=== PATIENT | male | born 1970 | race Caucasian/White ===

== ENCOUNTER 2025-01-10 15:09 | Emergency (ER) | payer SELFPAY ==
[~2025-01-10] VITALS: Ht 177.8 cm; Wt 80.0 kg
[2025-01-10] MEDS ORDERED: LIDOCAINE 2% VISCOUS 6 ML SYR TOP ONE (15:30)
[2025-01-10 15:55] VITALS: BP 170/119
--- OUTSIDE RECORDS SUMMARY | 2025-01-10 16:22 | XMS ---
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 Mary has no Care Guidelines for this patient. [place] VISIT COUNT (12 MO.) [address] [facility] 1 [facility]. TOTAL 5 NOTE: Visits indicate total known visits. [place]/[facility] [place] (12 MO.) 01/10/2025 15:[address] [facility] TYPE: Emergency COMPLAINT: - CATH ISSUES 01/03/2025 15:13 [facility] TYPE: Emergency DIAGNOSES: - Other retention of urine - Hematuria - medical concern - Urinary Retention 01/03/2025 08:33 [facility] TYPE: Emergency DIAGNOSES: - Encounter for fitting and adjustment of urinary device - Catheter Problem (Change) - catheter removal 12/30/2024 07:02 [facility] TYPE: Emergency COMPLAINT: - Retention of urine, unspecified DIAGNOSES: 1. Retention of urine, unspecified 2. Other stimulant abuse, uncomplicated 3. Elevated blood-pressure reading, without diagnosis of hypertension 4. Other longterm (current) drug therapy 12/28/2024 06:08 [facility] TYPE: Emergency DIAGNOSES: 1. Other retention of urine INPATIENT VISIT TRACKING (12 MO.) No inpatient visits to display in this time frame [id number]
== END 2025-01-10 15:55 | disposition home or self-care (01) ==
LOC: ED 15:09
DX: T83.091A Other mechanical complication of indwelling urethral catheter, initial encounter (principal)
CPT/HCPCS: 51702; 51798; 99283; A4311

== ENCOUNTER 2025-01-12 12:55 | Emergency (ER) | payer SELFPAY ==
[~2025-01-12] VITALS: Ht 177.8 cm; Wt 89.0 kg
--- OUTSIDE RECORDS SUMMARY | 2025-01-12 13:02 | XMS ---
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 Mary has no Care Guidelines for this patient. [facility] VISIT COUNT (12 MO.) 2 [facility] [address] 1 [facility]. TOTAL 6 NOTE: Visits indicate total known visits. ED/UCC VISIT TRACKING (12 MO.) 01/12/2025 12:55 [facility] TYPE: Emergency COMPLAINT: - CATHETER PROBLEM 01/10/2025 15:12 [facility] TYPE: Emergency COMPLAINT: - CATH ISSUES 01/03/2025 15:13 [facility] TYPE: Emergency DIAGNOSES: - Other retention of urine - Hematuria - medical concern - Urinary Retention 01/03/2025 08:33 [facility] TYPE: Emergency DIAGNOSES: - Encounter for fitting and adjustment of urinary device - Catheter Problem (Change) - catheter removal 12/30/2024 07:02 [facility] TYPE: Emergency COMPLAINT: - Retention of urine, unspecified DIAGNOSES: 1. Retention of urine, unspecified 2. Other stimulant abuse, uncomplicated 3. Elevated blood-pressure reading, without diagnosis of hypertension 4. Other custodial (current) drug therapy 12/28/2024 06:08 [facility] TYPE: Emergency DIAGNOSES: 1. Other retention of urine INPATIENT VISIT TRACKING (12 MO.) No inpatient visits to display in this time frame [email or web address]
[2025-01-12] MEDS ORDERED: FLOMAX0.4 MG PO (14:09)
[2025-01-12] MEDS ORDERED: COVARYX H.S. T1 EACH PO (14:09)
[2025-01-12] MEDS ORDERED: FINASTERIDE1 MG PO (14:10)
[2025-01-12 14:46] VITALS: BP 166/113
== END 2025-01-12 14:48 | disposition home or self-care (01) ==
LOC: ED 12:55
DX: T83.091A Other mechanical complication of indwelling urethral catheter, initial encounter (principal); R33.9 Retention of urine, unspecified
CPT/HCPCS: 51798; 99283-25